=== PATIENT | male | born 1960 ===

== ENCOUNTER 2020-05-20 12:16 | Day surgery (SDC) | payer OTHER ==
[2020-05-20] VITALS (9 sets, daily range): BP systolic 115–124; BP diastolic 72–85; PULSE 60–73; TEMP 98.4
[~2020-05-20] VITALS: Ht 177.8 cm; Wt 95.5 kg
[2020-05-20] MEDS ORDERED: PREDNISONE20 MG PO (12:44)
[2020-05-20] MEDS ORDERED: ABILIFY30 MG PO (12:48)
[2020-05-20] MEDS ORDERED: VITAMIN D31000 I1 PO (12:49)
[2020-05-20] MEDS ORDERED: COLACE 100100 MG/CAP PO (12:50)
[2020-05-20] MEDS ORDERED: VITAMIN B12 781 TAB PO (12:50)
[2020-05-20 12:51] LABS: HEMATOCRIT 42.1 % (42.0-52.0); HEMOGLOBIN 14.5 g/dl (13.5-18.0); MEAN CELL VOLUME 100 fl (80.0-100.0); MEAN CORPUSCULAR HEMOGLOBIN 34 pg (27.0-31.0); MEAN CORPUSCULAR HGB CONC 34 g/dl (33.0-37.0); MEAN PLATELET VOLUME 8.7 fl (7.4-10.4); PLATELET COUNT 189 K/mm3 (130-400); RED BLOOD COUNT 4.21 M/mm3 (4.20-5.60); REDCELL DISTRIBUTION WIDTH-CV 12.1 % (11.5-14.5)
[2020-05-20] MEDS ORDERED: SINEQUAN 1010 MG/CAP PO (12:51)
[2020-05-20] MEDS ORDERED: LAMICTAL200 MG PO (12:51)
[2020-05-20] MEDS ORDERED: PEPCID 20MG TAB20 MG PO (12:51)
[2020-05-20] MEDS ORDERED: SYNTHROID 0.0.025 MG PO (12:54)
[2020-05-20] MEDS ORDERED: MINIPRESS2 MG PO (13:28)
[2020-05-20] MEDS ORDERED: ZOCOR 80MG80 MG PO (13:28)
[2020-05-20] MEDS ORDERED: TOPAMAX50 MG PO (13:29)
[2020-05-20] MEDS ORDERED: EFFEXOR-XR150 MG PO (13:29)
[2020-05-20] MEDS ORDERED: EPA FISH OIL1 SGL PO (13:30)
[2020-05-20] MEDS ORDERED: MOBIC15 MG PO (13:31)
[2020-05-20] MEDS ORDERED: AMBIEN 10MG10 MG PO (13:31)
[2020-05-20 13:38] LABS: INR 1.1 (0.8-3.0); PROTHROMBIN TIME 12.8 SECONDS (9.7-12.8)
--- NOTE | 2020-05-20 13:52 | NUR ---
SEE MERGE DOCUMENTATION FOR MEDICATION ADMINISTRATION TIMES AND INTRA/POST PROCEDURE SEDATION ASSESSMENTS. RIGHT HAND BARBEAU TEST POSITIVE.
[2020-05-20 14:05] LABS: CALCIUM 9.2 mg/dL (8.4-10.2); CREATININE, serum 0.96 (0.66-1.25); POTASSIUM 4.7 mmol/L (3.4-5.0)
[2020-05-20] MEDS ORDERED: ASPIRIN 81M81 MG/TA2 PO (14:40)
[2020-05-20] MEDS ORDERED: BRILINTA90 MG PO (14:40)
--- NOTE | 2020-05-20 15:32 | NUR ---
Pt resting comfortably. 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 Meal tray provided. Pt now resting comfortably in bed. Call light in reach.
--- NOTE | 2020-05-20 17:37 | NUR ---
Air from TR band removed in 2-4 ml increments without issue. Site dressed with folded 2x2 gauze and covered with bandaid. Arm board sent with pt. IV DC'd with catheter intact, site wrapped with coban. DC instructions reviwed, pt expresses understanding. He is assisted out to son's car with belongings.
== END 2020-05-20 17:40 | disposition home or self-care (01) ==
LOC: COL.CAR 12:16
PROVIDERS: Internal Medicine Cardiovascular Disease
DX: I25.10 Atherosclerotic heart disease of native coronary artery without angina pectoris (principal); G47.33 Obstructive sleep apnea (adult) (pediatric); K21.9 Gastro-esophageal reflux disease without esophagitis; E78.5 Hyperlipidemia, unspecified; E03.9 Hypothyroidism, unspecified; F43.10 Post-traumatic stress disorder, unspecified; F41.9 Anxiety disorder, unspecified; F32.9 Major depressive disorder, single episode, unspecified; N40.0 Benign prostatic hyperplasia without lower urinary tract symptoms; Z79.890 Hormone replacement therapy; Z79.82 Long term (current) use of aspirin
CPT/HCPCS: J1200; J1644; J2250; J2930; J3010; J7030; J7512; Q9967